=== PATIENT | female | born 1970 | race Caucasian/White ===

== ENCOUNTER 2016-05-27 20:03 | Emergency (ER) | payer OTHER ==
--- NOTE | ~2016-05-27 | CR113 ---
[facility] A Service of [facility] & [facility] RADIOLOGY TEXT RESULTS PATIENT: JENNIFER JOHNSTON LOCATION: SED : 66 UNIT #: [id number] AGE: [address]: Ashlyn Gifford APRN SEX: F ORDER DR: [id number] [address] [id number] MR#: [id number] Acc #: [id number] NAME: JENNIFER JOHNSTON : 1970 SEX: F STUDY DATE/TIME: 05/27/2016 20:25 UNIT: SED ROOM: STUDY DESCRIPTION: CR Finger [address] View [address] Attending Physician: Ashlyn Gifford A.P.R.N. Ordering Physician: Ashlyn Gifford A.P.R.N. Primary Care Physician: Kathie Stephen Aprn MEDICAL IMAGING REPORT This report is preliminary unless electronic signature is present. EXAM Right fourth digit 2 views HISTORY Crush injury and pain today FINDINGS 2 views of the right fourth digit are negative. No fracture, joint space narrowing or dislocation. No opaque soft tissue foreign body. IMPRESSION Negative Dictated by... Grabiel Corbett M.D. THIS IS AN ELECTRONICALLY VERIFIED REPORT Grabiel Corbett M.D. at 05/29/2016 3:28 PM DFL/to TD: 05/28/2016 11:11 JOB #: [id number] MEDICAL IMAGING REPORT
[~2016-05-27 20:03] MED LIST: NAPROSYN375 MG PO; NO MEDICATIONS; TIZANIDINE HCL4 M1 PO; VOLTAREN75 MG PO; ZANAFLEX4 M1 PO
== END 2016-05-27 21:16 | disposition home or self-care (01) ==
LOC: SED 20:03
DX: S67.194A Crushing injury of right ring finger, initial encounter (principal); Z88.2 Allergy status to sulfonamides; Z79.899 Other long term (current) drug therapy; Z87.891 Personal history of nicotine dependence; Z23 Encounter for immunization; X58.XXXA Exposure to other specified factors, initial encounter; Y92.69 Other specified industrial and construction area as the place of occurrence of the external cause
CPT/HCPCS: 29130; 73140; 90471; 90715; 99283